=== PATIENT | female | born 1970 | race Caucasian/White ===

== ENCOUNTER 2017-09-27 18:42 | Emergency (ER) | payer BC ==
[~2017-09-27] VITALS: Ht 147.3 cm; Wt 63.0 kg
[2017-09-27 18:42] VITALS: BP_SYST 121
[2017-09-27] MEDS ORDERED: DOXYCYCLINE HYCLATE 100 MG CAPSULE PO ONE (19:15)
[2017-09-27] MEDS ORDERED: IBUPROFEN 800 MG TABLET PO ONE (19:15)
[2017-09-27] MEDS ORDERED: DIPHENHYDRAMINE HCL 25 MG CAPSULE PO ONE (21:00)
[2017-09-27 21:13] VITALS: BP_SYST 124
== END 2017-09-27 21:13 | disposition home or self-care (01) ==
LOC: SED 18:42
DX: S90.861A Insect bite (nonvenomous), right foot, initial encounter (principal); R03.0 Elevated blood-pressure reading, without diagnosis of hypertension; Z88.0 Allergy status to penicillin; Z88.8 Allergy status to other drugs, medicaments and biological substances; W57.XXXA Bitten or stung by nonvenomous insect and other nonvenomous arthropods, initial encounter; Y93.89 Activity, other specified; Y92.89 Other specified places as the place of occurrence of the external cause; Y99.8 Other external cause status
CPT/HCPCS: 99284; Q0163

== ENCOUNTER 2017-12-18 21:06 | Emergency (ER) | payer BC ==
[~2017-12-18] VITALS: Ht 147.3 cm; Wt 59.9 kg
[2017-12-18 21:24] VITALS: BP_SYST 115
--- NOTE | 2017-12-18 21:24 | NUR ---
Patient to ER bed 8 to gown for evaluation. Side rails up. Report given to Slade SHAFER.
--- NOTE | 2017-12-18 21:30 | NUR ---
47year old female presented to ED with complaints of spider bite and SOL rashes; awaiting for MD assess/eval her back and now has rash to bilateral
--- NOTE | 2017-12-18 21:52 | NUR ---
Dr. Davies at bedside for assess/eval
[2017-12-18 22:15] VITALS: BP_SYST 115
--- NOTE | 2017-12-18 22:15 | NUR ---
Patient given written and verbal discharge instructions and verbalizes understanding. ER MD discussed with patient the results and treatment provided. Patient in stable condition. ID arm band removed. IV catheter removed intact and dressing applied, no active bleeding. Rx of given. Patient educated on pain management and to follow up with PMD. Pain Scale . Opportunity for questions provided and answered. Medication side effect fact sheet provided.
== END 2017-12-18 22:15 | disposition home or self-care (01) ==
LOC: SED 21:06
DX: S80.262A Insect bite (nonvenomous), left knee, initial encounter (principal); Z88.1 Allergy status to other antibiotic agents; Z88.0 Allergy status to penicillin; W57.XXXA Bitten or stung by nonvenomous insect and other nonvenomous arthropods, initial encounter; Y93.89 Activity, other specified; Y92.89 Other specified places as the place of occurrence of the external cause; Y99.8 Other external cause status
CPT/HCPCS: 99283